=== PATIENT | female | born 1935 | race Caucasian/White ===

== ENCOUNTER 2017-04-05 08:57 | Emergency (ER) | payer MEDICARE, OTHER ==
[~2017-04-05] VITALS: Ht 165.1 cm; Wt 80.0 kg
[~2017-04-05 08:57] MED LIST: AMLO2.5T45 PO; BIMA2.5D4 EACHEYE; CHOL50004 PO; CLON0.1T PO; CLOP75TA33 PO; DOCU-150 PO; FAMO40TA35 PO; FLUO-124 PO; INSLAN SQ; INSLIS SQ; IRON18TA PO; LACT10SO6 PO; LOSA50TA20 PO; METO25TA6 PO; SIMV10TA6 PO; SITA50TA3 PO; [UNRECOGNIZED DRUG - CODE] PO
[2017-04-05] MEDS ORDERED: KETOROLAC 60MG/2ML VIAL IM ONE (11:15)
[2017-04-05 13:14] VITALS: BP 144/60
== END 2017-04-05 13:15 | disposition home or self-care (01) ==
LOC: ER 10:07
DX: S70.02XA Contusion of left hip, initial encounter (principal); E11.9 Type 2 diabetes mellitus without complications; I10 Essential (primary) hypertension; Z79.4 Long term (current) use of insulin; Z79.899 Other long term (current) drug therapy; Z99.2 Dependence on renal dialysis; Y99.8 Other external cause status; Y92.9 Unspecified place or not applicable; Y93.89 Activity, other specified; W19.XXXA Unspecified fall, initial encounter
CPT/HCPCS: 70450; 72125; 73502; 96372; 99284; J1885

== ENCOUNTER 2017-07-19 05:41 | Inpatient (IN) | payer MEDICARE, OTHER ==
[2017-07-19] VITALS (8 sets, daily range): BP systolic 132–173; BP diastolic 45–70
[~2017-07-19] VITALS: Ht 157.5 cm; Wt 79.9 kg
[~2017-07-19 05:41] MED LIST changes: -FAMO40TA35 PO; +FAMO40TA70 PO
[2017-07-19] MEDS ORDERED: IPRATROPIUM BROMIDE (0.02%) 0.5MG/2.5ML NEB HHN STA (06:25)
[2017-07-19] MEDS ORDERED: ALBUTEROL (0.083%) 2.5MG/3ML NEB HHN STA (06:25)
[2017-07-19 06:58] LABS: BASOPHILS % 0.6 % (0.0-2.0); EOSINOPHILS % 2.3 % (0.0-5.0); HEMATOCRIT. 29.9 % (36.0-48.0); LYMPHOCYTES % 9.3 % (20.0-50.0); MEAN CORPUSCULAR HEMOGLOBIN 32.2 pg (28.0-32.0); MEAN CORPUSCULAR VOLUME 96.1 fL (81.0-99.0); MEAN PLATELET VOLUME 8.9 fl (7.4-10.4); MONOCYTES % 5.2 % (2.0-8.0); NEUTROPHILS % 82.6 % (40.0-76.0); PLATELET 157 x1000/uL (130-400); RED BLOOD CELL COUNT 3.11 mill/uL (4.2-5.4); RED CELL DISTRIBUTION WIDTH 15.2 % (11.6-14.6)
[2017-07-19 07:07] LABS: PARTIAL THROMBOPLASTIN TIME 26.2 sec (23.4-31.0); PROTHROMBIN TIME 10.5 sec (9.4-11.6)
[2017-07-19 07:09] LABS: CARBON DIOXIDE 30 mEq/L (21-32); CHLORIDE 100 mEq/L (98-107)
[2017-07-19 07:14] LABS: TROPONIN I 0.05 ng/mL (0.00-0.04)
[2017-07-19] MEDS ORDERED: LEVOFLOXACIN 500MG PREMIX 100 ML IV ONE (07:15)
[2017-07-19] MEDS ORDERED: VANCOMYCIN 1 G PREMIX 200 ML IV SCH (07:15)
[2017-07-19] MEDS ORDERED: DEXAMETHASONE 10 MG/ML VIAL IV ONE (08:30)
[2017-07-19] MEDS ORDERED: DEXTROSE 50% WATER 50ML SYRINGE IV PRN (09:45)
[2017-07-19] MEDS ORDERED: ACETAMINOPHEN 325MG TABLET PO PRN (09:45)
[2017-07-19] MEDS ORDERED: DOCUSATE SODIUM 100MG CAPSULE PO PRN (09:45)
[2017-07-19] MEDS ORDERED: MAGNESIUM/ALUMINUM HYDROXIDE/SIMETHICONE 30ML UDC PO PRN (09:45)
[2017-07-19] MEDS ORDERED: IPRATROPIUM/ALBUTEROL 0.5-3(2.5)MG/3ML NEB INH PRN (09:45)
[2017-07-19] MEDS ORDERED: ONDANSETRON HCL 4MG/2ML VIAL IV PRN (09:45)
[2017-07-19] MEDS ORDERED: LACTULOSE 20G/30ML UDC PO PRN ×2 (09:45→12:30)
[2017-07-19 10:48] LABS: PHOSPHORUS 3.7 mg/dL (2.5-4.9)
[2017-07-19] MEDS ORDERED: LEVO75TA7 PO (11:55)
[2017-07-19] MEDS ORDERED: TIMOLOL EACHEYE (11:55)
[2017-07-19] MEDS ORDERED: BRIMONIDINE EACHEYE (11:55)
[2017-07-19] MEDS ORDERED: DONE5TAB33 PO (11:55)
[2017-07-19] MEDS ORDERED: SEVE800T8 PO (11:55)
[2017-07-19] MEDS ORDERED: LEVEMIR SUBCUT (11:55)
[2017-07-19] MEDS ORDERED: QUET25TA PO (11:55)
[2017-07-19] MEDS ORDERED: NOVOLOG SUBCUT (11:55)
[2017-07-19] MEDS ORDERED: LACTULOSE 10 GM PO PRN (12:00)
[2017-07-19] MEDS ORDERED: BRIMONIDINE EACHEYE SCH (12:00)
[2017-07-19] MEDS ORDERED: TIMOLOL EACHEYE SCH (12:00)
[2017-07-19] MEDS ORDERED: CHOLECALCIFEROL 1000 UNIT PO SCH (12:00)
[2017-07-19] MEDS: TIMOLOL MALEATE 0.5% OPHTH DROPS 5ML EACHEYE SCH (14:57)
[2017-07-19] MEDS: BRIMONIDINE 0.2% OPHTH DROPS 5ML EACHEYE SCH (14:57)
[2017-07-19] MEDS ORDERED: IPRATROPIUM/ALBUTEROL 0.5-3(2.5)MG/3ML NEB HHN PRN (15:30)
[2017-07-19] MEDS: VITAMIN B / W-C 1 TAB PO SCH (16:57)
[2017-07-19] MEDS: LEVOTHYROXINE SODIUM 75MCG TABLET PO SCH (16:58)
[2017-07-19] MEDS: CHOLECALCIFEROL (D3) 1000 UNIT TABLET PO SCH (16:58)
[2017-07-19] MEDS: DONEPEZIL HCL 5MG TABLET PO SCH (16:58)
[2017-07-19] MEDS: FLUOXETINE HCL 20MG CAPSULE PO SCH (16:58)
[2017-07-19] MEDS: DOCUSATE SODIUM 100MG CAPSULE PO SCH (16:58)
[2017-07-19] MEDS ORDERED: MEDICATION NOT ON FORMULARY EA (Famotidine (Pepcid) 40 MG) PO SCH (17:00)
[2017-07-19] MEDS ORDERED: MEDICATION NOT ON FORMULARY EA (Bimatoprost (Lumigan) 1 DROP) EACHEYE SCH (17:00)
[2017-07-19] MEDS ORDERED: QUETIAPINE FUMARATE 25MG TABLET PO SCH (17:00)
[2017-07-19] MEDS: BLOOD SUGAR DIAGNOSTIC STRIP TEST SCH ×2 (17:27→21:47)
[2017-07-19] MEDS: INSULIN LISPRO 100 UNITS/ML SUBCUT SCH ×2 (17:32→21:50)
[2017-07-19] MEDS: FAMOTIDINE 20MG TABLET PO SCH (18:50)
[2017-07-19] MEDS: IPRATROPIUM/ALBUTEROL 0.5-3(2.5)MG/3ML NEB HHN SCH (20:02)
[2017-07-19] MEDS ORDERED: MEDICATION NOT ON FORMULARY EA (Simvastatin 10 MG) PO SCH (21:00)
[2017-07-19] MEDS: ATORVASTATIN CALCIUM 10MG TABLET PO SCH (21:41)
[2017-07-19] MEDS: QUETIAPINE FUMARATE 25MG TABLET PO SCH (21:41)
[2017-07-19] MEDS: METOPROLOL TARTRATE 25MG TABLET PO SCH (21:42)
[2017-07-19] MEDS: AMLODIPINE 5MG TABLET PO SCH (21:42)
[2017-07-19] MEDS: LATANOPROST 0.005% OPHTH DROPS 2.5ML EACHEYE SCH (21:51)
[2017-07-20] VITALS (12 sets, daily range): BP systolic 120–180; BP diastolic 42–68
[2017-07-20] MEDS: IPRATROPIUM/ALBUTEROL 0.5-3(2.5)MG/3ML NEB HHN SCH ×7 (00:12→23:58)
[2017-07-20 06:50] LABS: BASOPHILS % 0.7 % (0.0-2.0); EOSINOPHILS % 3.6 % (0.0-5.0); HEMATOCRIT. 28.2 % (36.0-48.0); HEMOGLOBIN. 9.3 g/dL (12.0-16.0); LYMPHOCYTES % 17.2 % (20.0-50.0); MEAN CORPUSCULAR HEMOGLOBIN 31.9 pg (28.0-32.0); MEAN CORPUSCULAR VOLUME 96.7 fL (81.0-99.0); MONOCYTES % 8.6 % (2.0-8.0); NEUTROPHILS % 69.9 % (40.0-76.0); PLATELET 135 x1000/uL (130-400); RED BLOOD CELL COUNT 2.92 mill/uL (4.2-5.4); RED CELL DISTRIBUTION WIDTH 14.9 % (11.6-14.6)
[2017-07-20 07:12] LABS: PHOSPHORUS 3.5 mg/dL (2.5-4.9)
[2017-07-20] MEDS: BLOOD SUGAR DIAGNOSTIC STRIP TEST SCH ×4 (07:42→21:00)
[2017-07-20] MEDS: INSULIN LISPRO 100 UNITS/ML SUBCUT SCH ×4 (07:43→21:20)
[2017-07-20] MEDS ORDERED: OMEPRAZOLE 20MG CAPSULE EXTENDED RELEASE PO SCH (07:50)
[2017-07-20] MEDS: CLONIDINE 0.1MG TABLET PO SCH (09:00)
[2017-07-20] MEDS ORDERED: SITAGLIPTIN PHOSPHATE 25 MG PO SCH (09:00)
[2017-07-20] MEDS: BRIMONIDINE 0.2% OPHTH DROPS 5ML EACHEYE SCH (09:00)
[2017-07-20] MEDS: LEVOTHYROXINE SODIUM 75MCG TABLET PO SCH (12:49)
[2017-07-20] MEDS: FLUOXETINE HCL 20MG CAPSULE PO SCH (12:49)
[2017-07-20] MEDS: DONEPEZIL HCL 5MG TABLET PO SCH (12:49)
[2017-07-20] MEDS: FAMOTIDINE 20MG TABLET PO SCH (12:50)
[2017-07-20] MEDS: CLOPIDOGREL 75MG TABLET PO SCH (12:50)
[2017-07-20] MEDS: DOCUSATE SODIUM 100MG CAPSULE PO SCH (12:50)
[2017-07-20] MEDS: AMLODIPINE 5MG TABLET PO SCH ×2 (12:50→20:07)
[2017-07-20] MEDS: METOPROLOL TARTRATE 25MG TABLET PO SCH ×2 (12:51→20:07)
[2017-07-20] MEDS: LOSARTAN POTASSIUM 50 MG TABLET PO SCH (12:52)
[2017-07-20] MEDS: CHOLECALCIFEROL (D3) 1000 UNIT TABLET PO SCH (12:53)
[2017-07-20] MEDS: TIMOLOL MALEATE 0.5% OPHTH DROPS 5ML EACHEYE SCH (12:54)
[2017-07-20] MEDS: LINAGLIPTIN 5MG TABLET PO SCH (16:48)
[2017-07-20] MEDS: SEVELAMER CARBONATE 800 MG TABLET PO SCH (16:48)
[2017-07-20] MEDS: VITAMIN B / W-C 1 TAB PO SCH (16:48)
[2017-07-20] MEDS: ATORVASTATIN CALCIUM 10MG TABLET PO SCH (20:06)
[2017-07-20] MEDS: QUETIAPINE FUMARATE 25MG TABLET PO SCH (20:07)
[2017-07-20] MEDS: LACTULOSE 20G/30ML UDC PO PRN (20:07)
[2017-07-20] MEDS: LATANOPROST 0.005% OPHTH DROPS 2.5ML EACHEYE SCH (20:21)
[2017-07-20] MEDS: CLONIDINE 0.1MG TABLET PO PRN (21:44)
[2017-07-21] VITALS (12 sets, daily range): BP systolic 123–176; BP diastolic 40–79
[2017-07-21] MEDS: IPRATROPIUM/ALBUTEROL 0.5-3(2.5)MG/3ML NEB HHN SCH ×5 (04:21→21:16)
[2017-07-21 06:39] LABS: BASOPHILS % 0.6 % (0.0-2.0); EOSINOPHILS % 3.9 % (0.0-5.0); HEMATOCRIT. 27.3 % (36.0-48.0); HEMOGLOBIN. 9.3 g/dL (12.0-16.0); LYMPHOCYTES % 19.6 % (20.0-50.0); MEAN CORPUSCULAR HEMOGLOBIN 32.7 pg (28.0-32.0); MEAN CORPUSCULAR VOLUME 96.3 fL (81.0-99.0); MEAN PLATELET VOLUME 9.2 fl (7.4-10.4); MONOCYTES % 7.8 % (2.0-8.0); NEUTROPHILS % 68.1 % (40.0-76.0); PLATELET 138 x1000/uL (130-400); RED BLOOD CELL COUNT 2.83 mill/uL (4.2-5.4); RED CELL DISTRIBUTION WIDTH 15.1 % (11.6-14.6)
[2017-07-21] MEDS: BLOOD SUGAR DIAGNOSTIC STRIP TEST SCH ×4 (07:57→20:36)
[2017-07-21] MEDS: BRIMONIDINE 0.2% OPHTH DROPS 5ML EACHEYE SCH (08:58)
[2017-07-21] MEDS: TIMOLOL MALEATE 0.5% OPHTH DROPS 5ML EACHEYE SCH (08:58)
[2017-07-21] MEDS: INSULIN LISPRO 100 UNITS/ML SUBCUT SCH ×4 (08:58→20:42)
[2017-07-21] MEDS: VITAMIN B / W-C 1 TAB PO SCH (08:59)
[2017-07-21] MEDS: FAMOTIDINE 20MG TABLET PO SCH (08:59)
[2017-07-21] MEDS: METOPROLOL TARTRATE 25MG TABLET PO SCH ×2 (08:59→20:21)
[2017-07-21] MEDS: CHOLECALCIFEROL (D3) 1000 UNIT TABLET PO SCH (08:59)
[2017-07-21] MEDS: LEVOTHYROXINE SODIUM 75MCG TABLET PO SCH (08:59)
[2017-07-21] MEDS: DOCUSATE SODIUM 100MG CAPSULE PO SCH ×2 (08:59→17:22)
[2017-07-21] MEDS: DONEPEZIL HCL 5MG TABLET PO SCH (09:00)
[2017-07-21] MEDS: LINAGLIPTIN 5MG TABLET PO SCH (09:00)
[2017-07-21] MEDS: FLUOXETINE HCL 20MG CAPSULE PO SCH (09:00)
[2017-07-21] MEDS: CLONIDINE 0.1MG TABLET PO SCH (09:00)
[2017-07-21] MEDS: LOSARTAN POTASSIUM 50 MG TABLET PO SCH (09:00)
[2017-07-21] MEDS: CLOPIDOGREL 75MG TABLET PO SCH (09:00)
[2017-07-21] MEDS: SEVELAMER CARBONATE 800 MG TABLET PO SCH (09:12)
[2017-07-21] MEDS: AMLODIPINE 5MG TABLET PO SCH ×2 (11:52→20:20)
[2017-07-21] MEDS ORDERED: BISACODYL 5MG TABLET PO NR (12:00)
[2017-07-21] MEDS ORDERED: MAGNESIUM CITRATE 300ML SOLUTION PO NR (13:30)
[2017-07-21] MEDS: LATANOPROST 0.005% OPHTH DROPS 2.5ML EACHEYE SCH (20:18)
[2017-07-21] MEDS: ATORVASTATIN CALCIUM 10MG TABLET PO SCH (20:19)
[2017-07-21] MEDS: QUETIAPINE FUMARATE 25MG TABLET PO SCH (20:21)
[2017-07-22] VITALS (11 sets, daily range): BP systolic 110–169; BP diastolic 40–65
[2017-07-22] MEDS: IPRATROPIUM/ALBUTEROL 0.5-3(2.5)MG/3ML NEB HHN SCH ×4 (00:27→20:57)
[2017-07-22 06:56] LABS: BASOPHILS % 0.5 % (0.0-2.0); EOSINOPHILS % 4.2 % (0.0-5.0); HEMOGLOBIN. 9.4 g/dL (12.0-16.0); LYMPHOCYTES % 17.5 % (20.0-50.0); MEAN CORPUSCULAR HEMOGLOBIN 32.1 pg (28.0-32.0); MEAN CORPUSCULAR VOLUME 95.7 fL (81.0-99.0); MEAN PLATELET VOLUME 9.3 fl (7.4-10.4); NEUTROPHILS % 69.8 % (40.0-76.0); PLATELET 146 x1000/uL (130-400); RED BLOOD CELL COUNT 2.93 mill/uL (4.2-5.4); RED CELL DISTRIBUTION WIDTH 15.1 % (11.6-14.6)
[2017-07-22] MEDS: BLOOD SUGAR DIAGNOSTIC STRIP TEST SCH ×4 (07:30→21:59)
[2017-07-22] MEDS: INSULIN LISPRO 100 UNITS/ML SUBCUT SCH ×4 (08:00→21:59)
[2017-07-22] MEDS: CLONIDINE 0.1MG TABLET PO SCH (09:00)
[2017-07-22] MEDS: AMLODIPINE 5MG TABLET PO SCH ×2 (09:00→21:57)
[2017-07-22] MEDS: METOPROLOL TARTRATE 25MG TABLET PO SCH ×2 (09:00→21:56)
[2017-07-22] MEDS: LOSARTAN POTASSIUM 50 MG TABLET PO SCH (09:00)
[2017-07-22] MEDS: DOCUSATE SODIUM 100MG CAPSULE PO SCH ×2 (09:00→17:00)
[2017-07-22] MEDS: TIMOLOL MALEATE 0.5% OPHTH DROPS 5ML EACHEYE SCH (10:07)
[2017-07-22] MEDS: BRIMONIDINE 0.2% OPHTH DROPS 5ML EACHEYE SCH (10:07)
[2017-07-22] MEDS: DONEPEZIL HCL 5MG TABLET PO SCH (10:08)
[2017-07-22] MEDS: LINAGLIPTIN 5MG TABLET PO SCH (10:08)
[2017-07-22] MEDS: CHOLECALCIFEROL (D3) 1000 UNIT TABLET PO SCH (10:08)
[2017-07-22] MEDS: CLOPIDOGREL 75MG TABLET PO SCH (10:08)
[2017-07-22] MEDS: VITAMIN B / W-C 1 TAB PO SCH (10:09)
[2017-07-22] MEDS: SEVELAMER CARBONATE 800 MG TABLET PO SCH (10:09)
[2017-07-22] MEDS: FAMOTIDINE 20MG TABLET PO SCH (10:10)
[2017-07-22] MEDS: FLUOXETINE HCL 20MG CAPSULE PO SCH (10:11)
[2017-07-22] MEDS: LEVOTHYROXINE SODIUM 75MCG TABLET PO SCH (10:11)
[2017-07-22] MEDS: ATORVASTATIN CALCIUM 10MG TABLET PO SCH (21:56)
[2017-07-22] MEDS: LATANOPROST 0.005% OPHTH DROPS 2.5ML EACHEYE SCH (21:57)
[2017-07-23] VITALS (7 sets, daily range): BP systolic 109–171; BP diastolic 57–74
[2017-07-23] MEDS: IPRATROPIUM/ALBUTEROL 0.5-3(2.5)MG/3ML NEB HHN SCH ×3 (00:32→08:33)
[2017-07-23] MEDS: CLONIDINE 0.1MG TABLET PO PRN (00:33)
[2017-07-23] MEDS: LACTULOSE 20G/30ML UDC PO PRN (01:10)
[2017-07-23 06:35] LABS: BASOPHILS % 0.5 % (0.0-2.0); EOSINOPHILS % 3.8 % (0.0-5.0); HEMATOCRIT. 28.6 % (36.0-48.0); HEMOGLOBIN. 9.5 g/dL (12.0-16.0); LYMPHOCYTES % 14.5 % (20.0-50.0); MEAN CORPUSCULAR VOLUME 96.6 fL (81.0-99.0); MEAN PLATELET VOLUME 9.5 fl (7.4-10.4); MONOCYTES % 7.5 % (2.0-8.0); NEUTROPHILS % 73.7 % (40.0-76.0); PLATELET 140 x1000/uL (130-400); RED BLOOD CELL COUNT 2.96 mill/uL (4.2-5.4); RED CELL DISTRIBUTION WIDTH 15.5 % (11.6-14.6)
[2017-07-23] MEDS: BLOOD SUGAR DIAGNOSTIC STRIP TEST SCH ×2 (07:21→11:54)
[2017-07-23] MEDS: INSULIN LISPRO 100 UNITS/ML SUBCUT SCH ×2 (08:00→12:07)
[2017-07-23] MEDS: VITAMIN B / W-C 1 TAB PO SCH (08:59)
[2017-07-23] MEDS: CHOLECALCIFEROL (D3) 1000 UNIT TABLET PO SCH (08:59)
[2017-07-23] MEDS: CLOPIDOGREL 75MG TABLET PO SCH (08:59)
[2017-07-23] MEDS: LOSARTAN POTASSIUM 50 MG TABLET PO SCH (09:00)
[2017-07-23] MEDS: FAMOTIDINE 20MG TABLET PO SCH (09:00)
[2017-07-23] MEDS: BRIMONIDINE 0.2% OPHTH DROPS 5ML EACHEYE SCH (09:00)
[2017-07-23] MEDS: LINAGLIPTIN 5MG TABLET PO SCH (09:00)
[2017-07-23] MEDS: TIMOLOL MALEATE 0.5% OPHTH DROPS 5ML EACHEYE SCH (09:00)
[2017-07-23] MEDS: DOCUSATE SODIUM 100MG CAPSULE PO SCH (09:00)
[2017-07-23] MEDS: LEVOTHYROXINE SODIUM 75MCG TABLET PO SCH (09:00)
[2017-07-23] MEDS: DONEPEZIL HCL 5MG TABLET PO SCH (09:00)
[2017-07-23] MEDS: CLONIDINE 0.1MG TABLET PO SCH (09:00)
[2017-07-23] MEDS: METOPROLOL TARTRATE 25MG TABLET PO SCH (09:01)
[2017-07-23] MEDS: AMLODIPINE 5MG TABLET PO SCH (09:01)
== END 2017-07-23 14:55 | disposition home health service (06) | DRG 133 ==
LOC: EDBEDREQ 07:08 → ER 07:25 → 5EST 07:27 → EDBEDREQTM 07:51 → ENRESERV 08:19 → SUPCPDRO 08:45 → ER 09:37 → 5EST 11:01
PROVIDERS: ADMIT Family Medicine Adult Medicine; ATTEND Family Medicine Adult Medicine
PROC: 5A1D60Z (ICD-10-PCS; principal; 2017-07-20)
DX: J96.21 Acute and chronic respiratory failure with hypoxia (principal); E43 Unspecified severe protein-calorie malnutrition; I50.33 Acute on chronic diastolic (congestive) heart failure; N17.9 Acute kidney failure, unspecified; J18.9 Pneumonia, unspecified organism; J44.0 Chronic obstructive pulmonary disease with (acute) lower respiratory infection; N18.6 End stage renal disease; E11.22 Type 2 diabetes mellitus with diabetic chronic kidney disease; E78.5 Hyperlipidemia, unspecified; D63.8 Anemia in other chronic diseases classified elsewhere; I25.10 Atherosclerotic heart disease of native coronary artery without angina pectoris; F02.80 Dementia in other diseases classified elsewhere, unspecified severity, without behavioral disturbance, psychotic disturbance, mood disturbance, and anxiety; G30.9 Alzheimer's disease, unspecified; I13.2 Hypertensive heart and chronic kidney disease with heart failure and with stage 5 chronic kidney disease, or end stage renal disease; Z99.2 Dependence on renal dialysis; Z68.32 Body mass index [BMI] 32.0-32.9, adult; Z99.81 Dependence on supplemental oxygen; I25.2 Old myocardial infarction; Z95.5 Presence of coronary angioplasty implant and graft; Z79.02 Long term (current) use of antithrombotics/antiplatelets; Z79.899 Other long term (current) drug therapy; Z90.49 Acquired absence of other specified parts of digestive tract; Z90.710 Acquired absence of both cervix and uterus; Z90.722 Acquired absence of ovaries, bilateral
CPT/HCPCS: 36415; 71010; 80048; 80053; 82962; 83605; 83735; 84100; 84484; 85025; 85610; 85730; 87040; 93005; 93306; 93970; 94640; 94644; 94664; 96365; 96367; 97116; 97162; 97166; 97530; 99291; J1100; J1815; J1956; J3370; J7030; J7611; J7620

== ENCOUNTER 2017-08-04 10:06 | Emergency (ER) | payer MEDICARE, MEDICAID ==
[~2017-08-04] VITALS: Ht 162.6 cm; Wt 82.0 kg
[~2017-08-04 10:06] MED LIST changes: +BRIMONIDINE EACHEYE; +DONE5TAB33 PO; -INSLAN SQ; -INSLIS SQ; -IRON18TA PO; +LEVEMIR SUBCUT; +LEVO75TA7 PO; +NOVOLOG SUBCUT; +QUET25TA PO; +SEVE800T8 PO; +TIMOLOL EACHEYE
[2017-08-04] MEDS ORDERED: MORPHINE SULFATE 4 MG/ML CPJ (NOT FOR IM USE) IV ONE (10:30)
[2017-08-04] MEDS ORDERED: ONDANSETRON HCL 4MG/2ML VIAL IV ONE (10:30)
[2017-08-04 12:01] LABS: BASOPHILS % 0.7 % (0.0-2.0); EOSINOPHILS % 6.6 % (0.0-5.0); HEMATOCRIT. 29.2 % (36.0-48.0); HEMOGLOBIN. 9.7 g/dL (12.0-16.0); LYMPHOCYTES % 13.1 % (20.0-50.0); MEAN CORPUSCULAR HEMOGLOBIN 32.3 pg (28.0-32.0); MEAN CORPUSCULAR VOLUME 96.6 fL (81.0-99.0); MEAN PLATELET VOLUME 9.1 fl (7.4-10.4); MONOCYTES % 5.8 % (2.0-8.0); NEUTROPHILS % 73.8 % (40.0-76.0); PLATELET 132 x1000/uL (130-400); RED BLOOD CELL COUNT 3.02 mill/uL (4.2-5.4); RED CELL DISTRIBUTION WIDTH 15.5 % (11.6-14.6)
[2017-08-04 12:16] LABS: CARBON DIOXIDE 30 mEq/L (21-32); CHLORIDE 101 mEq/L (98-107)
[2017-08-04] MEDS ORDERED: SODIUM CHLORIDE 0.9% 10ML VIAL ONE (15:12)
[2017-08-04] MEDS ORDERED: IOHEXOL-300 100 ML BOTTLE ONE (15:12)
[2017-08-04] MEDS ORDERED: INSULIN REGULAR (HUMULIN R) 300UNITS/3ML IV ONE (16:00)
[2017-08-04] MEDS ORDERED: SODIUM BICARBONATE 8.4% 1 MEQ/ML 50ML SYR IV ONE (16:00)
[2017-08-04] MEDS ORDERED: DEXTROSE 50% WATER 50ML SYRINGE IV ONE (16:00)
[2017-08-04] MEDS ORDERED: CALCIUM CHLORIDE 1GM/10ML SYR IV ONE (16:00)
[2017-08-04] MEDS ORDERED: SODIUM POLYSTYRENE SULFONATE 15 G/60 ML BOT PO ONE (16:00)
[2017-08-04 16:45] VITALS: BP 143/56
== END 2017-08-04 18:18 | disposition home or self-care (01) ==
LOC: ER 10:12
DX: R51 Headache (principal); W18.2XXA Fall in (into) shower or empty bathtub, initial encounter; Y93.E1 Activity, personal bathing and showering; Y92.091 Bathroom in other non-institutional residence as the place of occurrence of the external cause; I12.0 Hypertensive chronic kidney disease with stage 5 chronic kidney disease or end stage renal disease; N18.6 End stage renal disease; J90 Pleural effusion, not elsewhere classified; K57.30 Diverticulosis of large intestine without perforation or abscess without bleeding; E87.5 Hyperkalemia; M25.78 Osteophyte, vertebrae; E11.22 Type 2 diabetes mellitus with diabetic chronic kidney disease; K42.9 Umbilical hernia without obstruction or gangrene; M48.02 Spinal stenosis, cervical region; Z99.2 Dependence on renal dialysis; Z79.4 Long term (current) use of insulin; Z79.899 Other long term (current) drug therapy; Z90.49 Acquired absence of other specified parts of digestive tract
CPT/HCPCS: 36415; 70450; 71260; 72125; 73030; 73060; 73562; 74177; 80053; 82962; 85025; 96374; 96375; 99285; A4216; J1815; J2270; J2405; J3490; Q9967; A4565